=== PATIENT | female | born 1995 | race Caucasian/White ===

== ENCOUNTER 2017-09-06 21:13 | Emergency (ER) | payer MEDICAID, OTHER ==
[~2017-09-06] VITALS: Ht 165.1 cm; Wt 54.4 kg
[2017-09-06 21:15] VITALS: BP 118/76
[2017-09-06] MEDS ORDERED: NACL 0.9% 1,000 ML IV ONE (21:20)
--- NOTE | 2017-09-06 21:24 | NUR ---
PT BRITT ALS. TAKEN TO BED 10
--- NOTE | 2017-09-06 21:40 | NUR ---
BIBA D/T GENERALIZED WEAKNESS, N/V X1 DAY. PATIENT STATES HAVING 4 EPISODES OF EMESIS SINCE 8AM THIS MORNING. PATIENT STATES TAKING 5 CONTROL PILLS THIS MORNING AFTER HAVING UNPROTECTED SEX. PATIENT DENIES DIZZINESS, PAIN, THOUGHTS OF HURTING HERSELF OR OVERDOSE. PATIENT STATES GENERALIZED WEAKNESS. GAIT IS STEADY.
--- NOTE | 2017-09-06 21:45 | NUR ---
contacted poision control spoke with . Recommendations made by poision control is a full toxicity workup, check iron level, and to provide supportive care and maintenance. ER MD informed. will continue to monitor.
[2017-09-06] MEDS ORDERED: KETOROLAC 30 MG/ML VIAL IVP ONE (22:30)
[2017-09-06 22:42] LABS: HEMATOCRIT 40.8 % (36-48); HEMOGLOBIN 13.6 g/dL (12.0-16.0); MEAN CORPUSCULAR HEMOGLOBIN 30 pg (27-31); MEAN CORPUSCULAR HGB CONC 33 g/dL (33-37); MEAN CORPUSCULAR VOLUME 91 fL (80-94); PLATELET COUNT (AUTO) 200 K/uL (140-450); RED BLOOD CELL COUNT(AUTO) 4.48 MIL/uL (4.20-5.40); RED CELL DISTRIBUTION WIDTH 14.7 % (11.6-13.7); WHITE BLOOD COUNT (AUTO) 11.5 K/uL (4.8-10.8)
[2017-09-06 22:53] LABS: ALBUMIN 4.1 g/dL (3.4-5.0); ASPARTATE AMINOTRANSFERASE 16 U/L (15-37); CHLORIDE 103 mmol/L (98-107); CREATININE 0.9 mg/dL (0.6-1.3); GFR ARICAN-AMERICAN 99 mL/min (>90); GLUCOSE 101 mg/dL (74-106); SODIUM SERUM 140 mmol/L (136-145); TOTAL BILIRUBIN 0.5 mg/dL (0.0-1.0); UREA NITROGEN, BLOOD 14 mg/dL (7-18)
[2017-09-06 22:54] LABS: ACETAMINOPHEN < 0.5 ug/ml (10-30); SALICYLATE < 2.8 mg/dL (2.8-20.0)
[2017-09-06 22:56] LABS: LYMPHOCYTES % (MANUAL) 9 % (20-46); MONOCYTES % (MANUAL) 0 % (5-12)
[2017-09-06 23:23] VITALS: BP 118/76
--- NOTE | 2017-09-06 23:23 | NUR ---
Patient discharged with v/s stable. Written and verbal after care instructions given and explained. Patient verbalized understanding. Ambulatory with steady gait. All questions addressed prior to discharge. Advised to follow up with PMD.
[2017-09-06 23:24] LABS: BARBITURATE, URINE NEG. ng/ml (NEG <=200); BENZODIAZEPINE, URINE NEG. ng/mL (NEG <=200); CANNABINOID, URINE NEG. ng/mL (NEG <=50); COCAINE, URINE NEG. ng/mL (NEG <=300); OPIATE, URINE NEG. ng/mL (NEG <=2000); PHENCYCLIDINE SCREEN,URINE NEG. ng/mL (NEG <=25)
== END 2017-09-06 23:23 | disposition home or self-care (01) ==
LOC: MED 21:13
DX: R11.2 Nausea with vomiting, unspecified (principal)
CPT/HCPCS: 36415; 80053; 80305; 84702; 85025; 93005; 96361; 96374; 99285; G0480; G0482; J1885; J7030; 81002; 81025